=== PATIENT | female | born 1930 ===

== ENCOUNTER → 2017-09-08 | Emergency (ER) | payer OTHER ==
[~2017-09-08] VITALS: Ht 152.4 cm; Wt 66.7 kg
[~2017-09-08] MED LIST: ATENOLOL-CHLOR1 EACH; GABAPENTIN100 MG; ISOSORBIDE DINI30 MG; LISINOPRIL2.5 MG; ZANTAC300 MG
== END | disposition home or self-care (01) ==
LOC: ER 14:22
DX: M79.661 Pain in right lower leg (principal); M25.48 Effusion, other site